=== PATIENT | male | born 1950 ===

== ENCOUNTER 2025-05-23 02:45 | Inpatient (IN) ==
[2025-05-23] MEDS ORDERED: IOPAMIDOL 100 ML BOTTLE IV ONE (02:46)
[2025-05-23] MEDS: ONDANSETRON 4 MG/2 ML VIAL IV ONE (03:32)
[2025-05-23] MEDS: KETOROLAC 30 MG/ML VIAL IV ONE (03:32)
[2025-05-23] MEDS: fentaNYL 100 MCG/2 ML VIAL IV PRN (03:33)
[2025-05-23] MEDS: 0.9 % SODIUM CHLORIDE 1,000 ML IV ONE (03:34)
[2025-05-23 03:39] LABS: Basophils # (Auto) 0.01 K/mcL (0.00-0.30); Basophils % (Auto) 0.1 % (0.0-2.0); Eosinophils # (Auto) 0.21 K/mcL (0.00-0.70); Eosinophils % (Auto) 1.4 % (0.0-7.0); Hematocrit 34.9 % (40.1-51.0); Hemoglobin 11.7 g/dL (13.7-17.5); Lymphocytes # (Auto) 0.91 K/mcL (1.50-4.80); Lymphocytes % (Auto) 6.1 % (15.5-49.0); Mean Corpuscular HGB Conc 33.5 g/dL (31.0-36.0); Monocytes # (Auto) 1.55 K/mcL (0.10-0.90); Monocytes % (Auto) 10.4 % (1.0-12.0); Neutrophils % (Auto) 81.8 % (38.0-78.0); Platelet Count 338 K/mcL (140-440); RBC 3.93 M/mcL (4.63-6.08); WBC 14.9 K/mcL (4.5-11.0)
[2025-05-23 05:08] LABS: ALT/SGPT 40 U/L (<40); AST/SGOT 26 U/L (<40); Albumin 3.3 gm/dL (3.2-5.2); Albumin/Globulin Ratio 1.0 (1.0-2.3); Alkaline Phosphatase 90 U/L (39-117); Anion Gap 16.0 (8.0-16.0); Bilirubin,Total 0.5 mg/dL (0.1-1.0); Blood Urea Nitrogen 27 mg/dL (8-23); Calcium 9.0 mg/dL (8.6-10.4); Carbon Dioxide 20 mmol/L (22-30); Chloride 99 mmol/L (96-108); Globulin 3.2 gm/dL (2.2-3.7); Glucose 125 mg/dL (70-105); Potassium 3.6 mmol/L (3.3-5.1); Sodium 135 mmol/L (133-145)
[2025-05-23] MEDS: PIPERACILLIN SODIUM/TAZOBACTAM 3.375 GM in DEXTROSE 5% IN WATER 50 ML IV ONE (05:26)
[2025-05-23] MEDS ORDERED: ONDANSETRON 4 MG/2 ML VIAL IV PRN (05:40)
[2025-05-23] MEDS ORDERED: ACETAMINOPHEN 325 MG TABLET PO PRN (05:40)
[2025-05-23] MEDS: PANTOPRAZOLE 40 MG VIAL IV ONE ×3 (06:04→07:14)
[2025-05-23] MEDS: PANTOPRAZOLE 80 MG in 0.9 % SODIUM CHLORIDE 100 ML IV SCH ×2 (06:10→17:20)
[2025-05-23] MEDS: LACTATED RINGERS 1,000 ML IV SCH (06:19)
[2025-05-23] MEDS: 0.9 % SODIUM CHLORIDE 100 ML IV ONE (07:14)
[2025-05-23] MEDS: HYDROmorphone 0.5 MG/0.5 ML SYRINGE IV PRN ×2 (07:33→12:00)
[2025-05-23] MEDS ORDERED: PANTOPRAZOLE 80 MG in 0.9 % SODIUM CHLORIDE 100 ML IV SCH (08:45)
[2025-05-23] MEDS: ACETAMINOPHEN 1,000 MG/100 ML BAG IV SCH (09:18)
[2025-05-23] MEDS: PIPERACILLIN SODIUM/TAZOBACTAM 3.375 GM in DEXTROSE 5% IN WATER 100 ML IV SCH (10:33)
[2025-05-24 13:40] LABS: Basophils # (Auto) 0.01 K/mcL (0.00-0.30); Basophils % (Auto) 0.1 % (0.0-2.0); Eosinophils # (Auto) 0.01 K/mcL (0.00-0.70); Eosinophils % (Auto) 0.1 % (0.0-7.0); Hematocrit 40.6 % (40.1-51.0); Hemoglobin 13.1 g/dL (13.7-17.5); Lymphocytes # (Auto) 0.59 K/mcL (1.50-4.80); Lymphocytes % (Auto) 3.9 % (15.5-49.0); Mean Corpuscular HGB Conc 32.3 g/dL (31.0-36.0); Monocytes # (Auto) 0.90 K/mcL (0.10-0.90); Monocytes % (Auto) 6.0 % (1.0-12.0); Neutrophils % (Auto) 88.4 % (38.0-78.0); Platelet Count 278 K/mcL (140-440); RBC 4.44 M/mcL (4.63-6.08); WBC 15.1 K/mcL (4.5-11.0)
[2025-05-24] MEDS: PANTOPRAZOLE 40 MG VIAL IV ONE (22:36)
[2025-05-25 03:14] LABS: Bacteria,Urine FEW /hpf (0); Bilirubin,Urine Negative (Negative); Color,Urine Yellow; Glucose,Urine (UA) Negative (Negative); Ketones,Urine Trace mg/dL (Negative); Leukocyte Esterase,Urine Negative /uL (Negative); PH,Urine 5.0 (5.0-9.0); Protein,Urine 30 mg/dL (Negative); Specific Gravity,Urine 1.010 (1.000-1.035); Urine Amorphous Crystals MOD /hpf; Urobilinogen,Urine Normal
[2025-05-25 07:08] LABS: Basophils # (Auto) 0.02 K/mcL (0.00-0.30); Basophils % (Auto) 0.1 % (0.0-2.0); Eosinophils # (Auto) 0.03 K/mcL (0.00-0.70); Eosinophils % (Auto) 0.1 % (0.0-7.0); Hematocrit 40.8 % (40.1-51.0); Hemoglobin 13.6 g/dL (13.7-17.5); Lymphocytes # (Auto) 0.78 K/mcL (1.50-4.80); Lymphocytes % (Auto) 3.9 % (15.5-49.0); Mean Corpuscular HGB Conc 33.3 g/dL (31.0-36.0); Monocytes # (Auto) 1.10 K/mcL (0.10-0.90); Monocytes % (Auto) 5.5 % (1.0-12.0); Neutrophils % (Auto) 88.9 % (38.0-78.0); Platelet Count 299 K/mcL (140-440); RBC 4.59 M/mcL (4.63-6.08); WBC 20.1 K/mcL (4.5-11.0)
[2025-05-25 07:37] LABS: ALT/SGPT 20 U/L (<40); AST/SGOT 19 U/L (<40); Albumin 2.4 gm/dL (3.2-5.2); Albumin/Globulin Ratio 0.8 (1.0-2.3); Alkaline Phosphatase 66 U/L (39-117); Anion Gap 18.0 (8.0-16.0); Bilirubin,Direct 0.6 mg/dL (<0.3); Bilirubin,Total 0.9 mg/dL (0.1-1.0); Blood Urea Nitrogen 57 mg/dL (8-23); Calcium 7.9 mg/dL (8.6-10.4); Carbon Dioxide 18 mmol/L (22-30); Chloride 96 mmol/L (96-108); Globulin 3.1 gm/dL (2.2-3.7); Glucose 128 mg/dL (70-105); Phosphorous 6.0 mg/dL (2.5-4.5); Potassium 4.6 mmol/L (3.3-5.1); Sodium 132 mmol/L (133-145); Triglycerides 120 mg/dL (<150); Uric Acid 7.9 mg/dL (2.5-8.0)
[2025-05-25] MEDS ORDERED: PROPOFOL 200 MG/20 ML VIAL IV ONE (07:57)
[2025-05-25] MEDS ORDERED: GLYCOPYRROLATE 0.2 MG/ML VIAL IV ONE (08:13)
[2025-05-25] MEDS ORDERED: LIDOCAINE 2% PF 5 ML VIAL ONE (08:13)
[2025-05-25] MEDS ORDERED: TRANEXAMIC ACID 1,000 MG/10 ML VIAL ONE (08:13)
[2025-05-25] MEDS ORDERED: ROCURONIUM 10 MG/ML ML IV ONE (08:13)
[2025-05-25] MEDS ORDERED: ONDANSETRON 4 MG/2 ML VIAL ONE (08:13)
[2025-05-25] MEDS ORDERED: DEXAMETHASONE 10 MG/ML VIAL ONE (08:13)
[2025-05-25] MEDS ORDERED: METOCLOPRAMIDE 10 MG/2 ML VIAL ONE (08:15)
[2025-05-25] MEDS ORDERED: ROPIVACAINE HCL/PF 30 ML VIAL IJ ONE ×2 (08:15→08:40)
[2025-05-25] MEDS ORDERED: FAMOTIDINE/PF 20 MG/2 ML VIAL IV ONE (08:15)
[2025-05-25] MEDS ORDERED: IPRATROPIUM/ALBUTEROL 3 ML AMPUL.NEB NEB PRN ×2 (09:22→12:04)
[2025-05-25] MEDS ORDERED: HYDROmorphone 0.5 MG/0.5 ML SYRINGE IV PRN ×2 (09:35→12:04)
[2025-05-25] MEDS ORDERED: fentaNYL 100 MCG/2 ML VIAL IV PRN ×2 (09:35→12:04)
[2025-05-25] MEDS ORDERED: SUGAMMADEX SODIUM 200 MG/2 ML VIAL IV ONE (11:39)
[2025-05-25] MEDS: ALBUMIN HUMAN 25 GM/100 ML BAG IV ONE (13:37)
[2025-05-25] MEDS: LACTATED RINGERS 1,000 ML IV SCH ×2 (13:45→19:07)
[2025-05-25] MEDS: ALBUMIN HUMAN 25 GM/100 ML BAG IV SCH (13:48)
[2025-05-25] MEDS: PIPERACILLIN SODIUM/TAZOBACTAM 3.375 GM in DEXTROSE 5% IN WATER 100 ML IV SCH (16:11)
[2025-05-25] MEDS: 0.9 % SODIUM CHLORIDE 1,000 ML IV SCH (19:07)
[2025-05-26 07:21] LABS: ALT/SGPT 20 U/L (<40); AST/SGOT 32 U/L (<40); Albumin 3.3 gm/dL (3.2-5.2); Albumin/Globulin Ratio 1.7 (1.0-2.3); Alkaline Phosphatase 46 U/L (39-117); Anion Gap 17.0 (8.0-16.0); Bilirubin,Direct 0.6 mg/dL (<0.3); Bilirubin,Total 0.9 mg/dL (0.1-1.0); Blood Urea Nitrogen 66 mg/dL (8-23); Calcium 7.4 mg/dL (8.6-10.4); Carbon Dioxide 17 mmol/L (22-30); Chloride 101 mmol/L (96-108); Globulin 2.0 gm/dL (2.2-3.7); Glucose 101 mg/dL (70-105); Phosphorous 4.6 mg/dL (2.5-4.5); Potassium 3.7 mmol/L (3.3-5.1); Sodium 135 mmol/L (133-145); Triglycerides 103 mg/dL (<150); Uric Acid 8.8 mg/dL (2.5-8.0)
[2025-05-26 07:27] LABS: Basophils # (Auto) 0 K/mcL (0.00-0.30); Basophils % (Auto) 0 % (0.0-2.0); Eosinophils # (Auto) 0 K/mcL (0.00-0.70); Eosinophils % (Auto) 0 % (0.0-7.0); Hematocrit 25.9 % (40.1-51.0); Hemoglobin 8.7 g/dL (13.7-17.5); Lymphocytes # (Auto) 0.45 K/mcL (1.50-4.80); Lymphocytes % (Auto) 3.4 % (15.5-49.0); Mean Corpuscular HGB Conc 33.6 g/dL (31.0-36.0); Monocytes # (Auto) 0.59 K/mcL (0.10-0.90); Monocytes % (Auto) 4.5 % (1.0-12.0); Neutrophils % (Auto) 90.7 % (38.0-78.0); Platelet Count 192 K/mcL (140-440); RBC 2.95 M/mcL (4.63-6.08); WBC 13.2 K/mcL (4.5-11.0)
[2025-05-26] MEDS: 0.9 % SODIUM CHLORIDE 1,000 ML IV SCH (10:14)
[2025-05-26] MEDS: diphenhydrAMINE 50 MG/ML VIAL IV PRN (13:37)
[2025-05-26] MEDS: HALOPERIDOL LACTATE 5 MG/ML VIAL IV ONE (18:01)
[2025-05-26] MEDS: DEXMEDETOMIDINE 400 MCG in PREMIX 1 BAG IV SCH (20:40)
[2025-05-26] MEDS: 0.9 % SODIUM CHLORIDE 250 ML IV SCH (20:42)
[2025-05-26] MEDS: DEXMEDETOMIDINE 100 ML IV ONE (21:07)
[2025-05-26] MEDS: 0.9 % SODIUM CHLORIDE 1,000 ML IV ONE (21:23)
[2025-05-26 21:40] LABS: VBG HCO3 17.7 mmol/L (24.0-28.0); VBG PCO2 31.3 mmHg (41.0-51.0); VBG PH 7.37 U (7.32-7.42); VBG PO2 41.3 mmHg (25.0-40.0)
[2025-05-26 23:22] LABS: Bacteria,Urine Mod /hpf (0); Bilirubin,Urine Negative (Negative); Color,Urine Yellow; Glucose,Urine (UA) Negative (Negative); Ketones,Urine Negative (Negative); Leukocyte Esterase,Urine Negative /uL (Negative); Mucus,Urine Few /hpf; PH,Urine 5.5 (5.0-9.0); Protein,Urine 100 mg/dL (Negative); Specific Gravity,Urine 1.015 (1.000-1.035); Urobilinogen,Urine Normal
[2025-05-27] MEDS ORDERED: HALOPERIDOL LACTATE 5 MG/ML VIAL IM PRN
[2025-05-27] MEDS ORDERED: HALOPERIDOL LACTATE 5 MG/ML VIAL IV PRN
[2025-05-27] MEDS: DEXMEDETOMIDINE 100 ML IV ONE ×3 (05:08→19:17)
[2025-05-27 06:31] LABS: ALT/SGPT 19 U/L (<40); AST/SGOT 26 U/L (<40); Albumin 3.2 gm/dL (3.2-5.2); Albumin/Globulin Ratio 2.0 (1.0-2.3); Alkaline Phosphatase 50 U/L (39-117); Anion Gap 13.0 (8.0-16.0); Bilirubin,Direct 0.4 mg/dL (<0.3); Bilirubin,Total 0.7 mg/dL (0.1-1.0); Blood Urea Nitrogen 61 mg/dL (8-23); Calcium 7.6 mg/dL (8.6-10.4); Carbon Dioxide 16 mmol/L (22-30); Chloride 109 mmol/L (96-108); Globulin 1.6 gm/dL (2.2-3.7); Glucose 96 mg/dL (70-105); Phosphorous 4.7 mg/dL (2.5-4.5); Potassium 3.7 mmol/L (3.3-5.1); Sodium 138 mmol/L (133-145); Triglycerides 112 mg/dL (<150); Uric Acid 7.5 mg/dL (2.5-8.0)
[2025-05-27 06:56] LABS: Basophils # (Auto) 0 K/mcL (0.00-0.30); Basophils % (Auto) 0 % (0.0-2.0); Eosinophils # (Auto) 0.04 K/mcL (0.00-0.70); Eosinophils % (Auto) 0.3 % (0.0-7.0); Hematocrit 23.3 % (40.1-51.0); Hemoglobin 7.9 g/dL (13.7-17.5); Lymphocytes # (Auto) 0.38 K/mcL (1.50-4.80); Lymphocytes % (Auto) 2.8 % (15.5-49.0); Mean Corpuscular HGB Conc 33.9 g/dL (31.0-36.0); Monocytes # (Auto) 0.43 K/mcL (0.10-0.90); Monocytes % (Auto) 3.2 % (1.0-12.0); Neutrophils % (Auto) 91.5 % (38.0-78.0); Platelet Count 143 K/mcL (140-440); RBC 2.65 M/mcL (4.63-6.08); WBC 13.6 K/mcL (4.5-11.0)
[2025-05-27] MEDS: LACTATED RINGERS 1,000 ML IV SCH (07:47)
[2025-05-27] MEDS: 0.9 % SODIUM CHLORIDE 250 ML IV SCH (10:10)
[2025-05-27] MEDS ORDERED: IOPAMIDOL 100 ML BOTTLE IV ONE (16:16)
[2025-05-27] MEDS: PANTOPRAZOLE 40 MG VIAL IV ONE (18:56)
[2025-05-28] MEDS: DEXMEDETOMIDINE 100 ML IV ONE ×2 (02:50→12:26)
[2025-05-28] MEDS: PANTOPRAZOLE 40 MG VIAL IV ONE (03:27)
[2025-05-28 06:17] LABS: ALT/SGPT 20 U/L (<40); AST/SGOT 21 U/L (<40); Albumin 2.7 gm/dL (3.2-5.2); Albumin/Globulin Ratio 1.3 (1.0-2.3); Alkaline Phosphatase 72 U/L (39-117); Anion Gap 13.0 (8.0-16.0); Bilirubin,Direct 0.5 mg/dL (<0.3); Bilirubin,Total 0.8 mg/dL (0.1-1.0); Blood Urea Nitrogen 64 mg/dL (8-23); Calcium 8.0 mg/dL (8.6-10.4); Carbon Dioxide 15 mmol/L (22-30); Chloride 111 mmol/L (96-108); Globulin 2.1 gm/dL (2.2-3.7); Glucose 109 mg/dL (70-105); Phosphorous 4.7 mg/dL (2.5-4.5); Potassium 3.9 mmol/L (3.3-5.1); Sodium 139 mmol/L (133-145); Triglycerides 112 mg/dL (<150); Uric Acid 6.9 mg/dL (2.5-8.0)
[2025-05-28 06:27] LABS: Basophils # (Auto) 0 K/mcL (0.00-0.30); Basophils % (Auto) 0 % (0.0-2.0); Eosinophils # (Auto) 0.21 K/mcL (0.00-0.70); Eosinophils % (Auto) 0.9 % (0.0-7.0); Hematocrit 27.6 % (40.1-51.0); Hemoglobin 9.2 g/dL (13.7-17.5); Lymphocytes # (Auto) 0.51 K/mcL (1.50-4.80); Lymphocytes % (Auto) 2.3 % (15.5-49.0); Mean Corpuscular HGB Conc 33.3 g/dL (31.0-36.0); Monocytes # (Auto) 0.62 K/mcL (0.10-0.90); Monocytes % (Auto) 2.8 % (1.0-12.0); Neutrophils % (Auto) 90.8 % (38.0-78.0); Platelet Count 165 K/mcL (140-440); RBC 3.10 M/mcL (4.63-6.08); WBC 22.5 K/mcL (4.5-11.0)
[2025-05-28] MEDS: ALBUMIN HUMAN 25 GM/100 ML BAG IV SCH (13:20)
[2025-05-28] MEDS: PANTOPRAZOLE 40 MG VIAL IV SCH (17:02)
[2025-05-29] MEDS: DEXMEDETOMIDINE 100 ML IV ONE ×3 (02:38→22:37)
[2025-05-29 06:18] LABS: Basophils # (Auto) 0 K/mcL (0.00-0.30); Basophils % (Auto) 0 % (0.0-2.0); Eosinophils # (Auto) 0.27 K/mcL (0.00-0.70); Eosinophils % (Auto) 1.2 % (0.0-7.0); Hematocrit 23.0 % (40.1-51.0); Hemoglobin 8.0 g/dL (13.7-17.5); Lymphocytes # (Auto) 0.48 K/mcL (1.50-4.80); Lymphocytes % (Auto) 2.2 % (15.5-49.0); Mean Corpuscular HGB Conc 34.8 g/dL (31.0-36.0); Monocytes # (Auto) 0.47 K/mcL (0.10-0.90); Monocytes % (Auto) 2.1 % (1.0-12.0); Neutrophils % (Auto) 92.0 % (38.0-78.0); Platelet Count 170 K/mcL (140-440); RBC 2.66 M/mcL (4.63-6.08); WBC 22.0 K/mcL (4.5-11.0)
[2025-05-29 06:49] LABS: ALT/SGPT 16 U/L (<40); AST/SGOT 18 U/L (<40); Albumin 3.4 gm/dL (3.2-5.2); Albumin/Globulin Ratio 1.9 (1.0-2.3); Alkaline Phosphatase 117 U/L (39-117); Anion Gap 12.0 (8.0-16.0); Bilirubin,Direct 0.8 mg/dL (<0.3); Bilirubin,Total 1.3 mg/dL (0.1-1.0); Blood Urea Nitrogen 58 mg/dL (8-23); Calcium 8.5 mg/dL (8.6-10.4); Carbon Dioxide 19 mmol/L (22-30); Chloride 112 mmol/L (96-108); Globulin 1.8 gm/dL (2.2-3.7); Glucose 102 mg/dL (70-105); Phosphorous 3.1 mg/dL (2.5-4.5); Potassium 3.5 mmol/L (3.3-5.1); Sodium 143 mmol/L (133-145); Triglycerides 92 mg/dL (<150); Uric Acid 5.2 mg/dL (2.5-8.0)
[2025-05-29] MEDS: 0.9 % SODIUM CHLORIDE 250 ML IV SCH (15:19)
[2025-05-30] MEDS: DEXMEDETOMIDINE 100 ML IV ONE ×2 (03:47→16:52)
[2025-05-30 06:12] LABS: ALT/SGPT 18 U/L (<40); AST/SGOT 27 U/L (<40); Albumin 2.8 gm/dL (3.2-5.2); Albumin/Globulin Ratio 1.5 (1.0-2.3); Alkaline Phosphatase 102 U/L (39-117); Anion Gap 13.0 (8.0-16.0); Bilirubin,Direct 1.1 mg/dL (<0.3); Bilirubin,Total 2.0 mg/dL (0.1-1.0); Blood Urea Nitrogen 48 mg/dL (8-23); Calcium 7.9 mg/dL (8.6-10.4); Carbon Dioxide 19 mmol/L (22-30); Chloride 113 mmol/L (96-108); Globulin 1.9 gm/dL (2.2-3.7); Glucose 131 mg/dL (70-105); Phosphorous 3.2 mg/dL (2.5-4.5); Potassium 3.8 mmol/L (3.3-5.1); Sodium 145 mmol/L (133-145); Triglycerides 107 mg/dL (<150); Uric Acid 4.4 mg/dL (2.5-8.0)
[2025-05-30] MEDS: 0.9 % SODIUM CHLORIDE 250 ML IV SCH ×3 (06:30→16:00)
[2025-05-30 06:53] LABS: POC Blood Urea Nitrogen 42.0 (6-20); POC CO2 16.0 (22-30); POC Calcium, Ionized 1.03 (1.16-1.32); POC Glucose, Random 117.0 (70-105)
[2025-05-30] MEDS: TRANEXAMIC ACID 1,000 MG/10 ML VIAL IV ONE (06:54)
[2025-05-30 06:59] LABS: Basophils # (Auto) 0 K/mcL (0.00-0.30); Basophils % (Auto) 0 % (0.0-2.0); Eosinophils # (Auto) 0.09 K/mcL (0.00-0.70); Eosinophils % (Auto) 0.4 % (0.0-7.0); Hematocrit 27.4 % (40.1-51.0); Hemoglobin 9.4 g/dL (13.7-17.5); Lymphocytes # (Auto) 0.67 K/mcL (1.50-4.80); Lymphocytes % (Auto) 3.3 % (15.5-49.0); Mean Corpuscular HGB Conc 34.3 g/dL (31.0-36.0); Monocytes # (Auto) 0.47 K/mcL (0.10-0.90); Monocytes % (Auto) 2.3 % (1.0-12.0); Neutrophils % (Auto) 90.5 % (38.0-78.0); Platelet Count 171 K/mcL (140-440); RBC 3.17 M/mcL (4.63-6.08); WBC 20.2 K/mcL (4.5-11.0)
[2025-05-30] MEDS ORDERED: PANTOPRAZOLE 40 MG VIAL IV SCH ×2 (07:00→07:30)
[2025-05-30] MEDS ORDERED: PANTOPRAZOLE 80 MG in 0.9 % SODIUM CHLORIDE 100 ML IV SCH (07:00)
[2025-05-30] MEDS ORDERED: GLYCOPYRROLATE 0.2 MG/ML VIAL IV ONE (07:06)
[2025-05-30] MEDS ORDERED: FAMOTIDINE/PF 20 MG/2 ML VIAL IV ONE (07:06)
[2025-05-30] MEDS ORDERED: DEXAMETHASONE 10 MG/ML VIAL ONE (07:06)
[2025-05-30] MEDS ORDERED: LIDOCAINE 2% PF 5 ML VIAL ONE (07:06)
[2025-05-30] MEDS ORDERED: ONDANSETRON 4 MG/2 ML VIAL ONE (07:06)
[2025-05-30] MEDS ORDERED: ROCURONIUM 10 MG/ML ML IV ONE (07:06)
[2025-05-30] MEDS ORDERED: PROPOFOL 200 MG/20 ML VIAL IV ONE (07:10)
[2025-05-30] MEDS ORDERED: fentaNYL 100 MCG/2 ML VIAL ONE ×2 (07:11→10:35)
[2025-05-30] MEDS ORDERED: SUCCINYLCHOLINE 200 MG/10 ML VIAL IV ONE (07:41)
[2025-05-30] MEDS: PANTOPRAZOLE 40 MG VIAL IV ONE (08:42)
[2025-05-30 09:39] LABS: INR 2.1 (0.9-1.1); Prothrombin Time 25.0 sec (11.9-14.5)
[2025-05-30] MEDS ORDERED: METHOCARBAMOL 1,000 MG/10 ML VIAL IV PRN (10:10)
[2025-05-30] MEDS ORDERED: IPRATROPIUM/ALBUTEROL 3 ML AMPUL.NEB NEB PRN (10:10)
[2025-05-30] MEDS ORDERED: MEPERIDINE 25 MG/ML VIAL IV PRN (10:10)
[2025-05-30] MEDS ORDERED: LACTATED RINGERS 250 ML IV PRN (10:10)
[2025-05-30] MEDS ORDERED: NALOXONE HCL 0.4 MG/ML VIAL IV PRN (10:10)
[2025-05-30] MEDS ORDERED: fentaNYL 100 MCG/2 ML VIAL IV PRN (10:10)
[2025-05-30] MEDS ORDERED: diphenhydrAMINE 50 MG/ML VIAL IV PRN (10:10)
[2025-05-30] MEDS ORDERED: ONDANSETRON 4 MG/2 ML VIAL IV PRN (10:10)
[2025-05-30] MEDS ORDERED: SUGAMMADEX SODIUM 200 MG/2 ML VIAL IV ONE (10:12)
[2025-05-30] MEDS: LACTATED RINGERS 1,000 ML IV SCH (12:13)
[2025-05-30 12:16] LABS: Basophils # (Auto) 0.01 K/mcL (0.00-0.30); Basophils % (Auto) 0 % (0.0-2.0); Eosinophils # (Auto) 0.06 K/mcL (0.00-0.70); Eosinophils % (Auto) 0.2 % (0.0-7.0); Hematocrit 41.0 % (40.1-51.0); Hemoglobin 13.6 g/dL (13.7-17.5); Lymphocytes # (Auto) 0.89 K/mcL (1.50-4.80); Lymphocytes % (Auto) 3.1 % (15.5-49.0); Mean Corpuscular HGB Conc 33.2 g/dL (31.0-36.0); Monocytes # (Auto) 0.61 K/mcL (0.10-0.90); Monocytes % (Auto) 2.1 % (1.0-12.0); Neutrophils % (Auto) 91.0 % (38.0-78.0); Platelet Count 174 K/mcL (140-440); RBC 4.79 M/mcL (4.63-6.08); WBC 29.1 K/mcL (4.5-11.0)
[2025-05-30] MEDS: PHYTONADIONE 10 MG/ML AMPUL SQ SCH (12:16)
[2025-05-30 16:19] LABS: Basophils # (Auto) 0.01 K/mcL (0.00-0.30); Basophils % (Auto) 0 % (0.0-2.0); Eosinophils # (Auto) 0.02 K/mcL (0.00-0.70); Eosinophils % (Auto) 0.1 % (0.0-7.0); Hematocrit 43.0 % (40.1-51.0); Hemoglobin 13.5 g/dL (13.7-17.5); Lymphocytes # (Auto) 0.99 K/mcL (1.50-4.80); Lymphocytes % (Auto) 2.9 % (15.5-49.0); Mean Corpuscular HGB Conc 31.4 g/dL (31.0-36.0); Monocytes # (Auto) 0.58 K/mcL (0.10-0.90); Monocytes % (Auto) 1.7 % (1.0-12.0); Neutrophils % (Auto) 91.8 % (38.0-78.0); Platelet Count 185 K/mcL (140-440); RBC 4.71 M/mcL (4.63-6.08); WBC 34.2 K/mcL (4.5-11.0)
[2025-05-30] MEDS: PANTOPRAZOLE 40 MG VIAL IV SCH (16:24)
[2025-05-30 18:45] LABS: INR 1.6 (0.9-1.1); Prothrombin Time 20.0 sec (11.9-14.5)
[2025-05-31] MEDS: DEXMEDETOMIDINE 100 ML IV ONE ×5 (01:31→20:19)
[2025-05-31 06:29] LABS: Basophils # (Auto) 0.01 K/mcL (0.00-0.30); Basophils % (Auto) 0.1 % (0.0-2.0); Eosinophils # (Auto) 0.01 K/mcL (0.00-0.70); Eosinophils % (Auto) 0.1 % (0.0-7.0); Hematocrit 28.1 % (40.1-51.0); Hemoglobin 9.4 g/dL (13.7-17.5); Lymphocytes # (Auto) 0.54 K/mcL (1.50-4.80); Lymphocytes % (Auto) 2.8 % (15.5-49.0); Mean Corpuscular HGB Conc 33.5 g/dL (31.0-36.0); Monocytes # (Auto) 0.59 K/mcL (0.10-0.90); Monocytes % (Auto) 3.1 % (1.0-12.0); Neutrophils % (Auto) 91.9 % (38.0-78.0); Platelet Count 137 K/mcL (140-440); RBC 3.27 M/mcL (4.63-6.08); WBC 19.1 K/mcL (4.5-11.0)
[2025-05-31 06:47] LABS: ALT/SGPT 32 U/L (<40); AST/SGOT 60 U/L (<40); Albumin 2.6 gm/dL (3.2-5.2); Albumin/Globulin Ratio 1.2 (1.0-2.3); Alkaline Phosphatase 162 U/L (39-117); Anion Gap 11.0 (8.0-16.0); Bilirubin,Direct 2.1 mg/dL (<0.3); Bilirubin,Total 3.1 mg/dL (0.1-1.0); Blood Urea Nitrogen 45 mg/dL (8-23); Calcium 8.0 mg/dL (8.6-10.4); Carbon Dioxide 21 mmol/L (22-30); Chloride 112 mmol/L (96-108); Globulin 2.2 gm/dL (2.2-3.7); Glucose 139 mg/dL (70-105); Phosphorous 3.4 mg/dL (2.5-4.5); Potassium 4.4 mmol/L (3.3-5.1); Sodium 144 mmol/L (133-145); Triglycerides 114 mg/dL (<150); Uric Acid 4.4 mg/dL (2.5-8.0)
[2025-05-31] MEDS: HEPARIN 10 UNITS/ML 5ML FLUSH IV SCH ×2 (08:18→08:19)
[2025-05-31] MEDS: 0.9 % SODIUM CHLORIDE 10 ML SYRINGE IV SCH (08:51)
[2025-05-31 13:17] LABS: INR 1.2 (0.9-1.1); Prothrombin Time 16.1 sec (11.9-14.5)
[2025-05-31] MEDS ORDERED: DEXTROSE 50% 50 ML VIAL IV PRN (14:32)
[2025-05-31] MEDS ORDERED: DEXTROSE 31 GM ORAL.SUSP PO PRN (14:32)
[2025-05-31] MEDS ORDERED: HEPARIN 10 UNITS/ML 5ML FLUSH IV ONE (14:56)
[2025-05-31] MEDS ORDERED: SODIUM CHLORIDE IRRIG SOLUTION 500 ML BOTTLE IRR ONE (14:56)
[2025-05-31] MEDS: POTASSIUM PHOSPHATE IV SCH (15:25)
[2025-05-31] MEDS: TPN PER PHARMACY IV SCH (15:25)
[2025-05-31] MEDS: MAGNESIUM SULFATE IV SCH (15:25)
[2025-05-31] MEDS: CALCIUM GLUCONATE IV SCH (15:25)
[2025-05-31] MEDS: [UNRECOGNIZED DRUG - OTHER] IV SCH (15:25)
[2025-05-31] MEDS: INSULIN LISPRO 1 UNIT/0.01 ML UNIT SQ SCH (15:28)
[2025-06-01] MEDS: DEXMEDETOMIDINE 100 ML IV ONE (04:04)
[2025-06-01 07:46] LABS: Basophils # (Auto) 0 K/mcL (0.00-0.30); Basophils % (Auto) 0 % (0.0-2.0); Eosinophils # (Auto) 0.09 K/mcL (0.00-0.70); Eosinophils % (Auto) 0.4 % (0.0-7.0); Hematocrit 29.5 % (40.1-51.0); Hemoglobin 10.0 g/dL (13.7-17.5); Lymphocytes # (Auto) 0.60 K/mcL (1.50-4.80); Lymphocytes % (Auto) 2.7 % (15.5-49.0); Mean Corpuscular HGB Conc 33.9 g/dL (31.0-36.0); Monocytes # (Auto) 0.69 K/mcL (0.10-0.90); Monocytes % (Auto) 3.1 % (1.0-12.0); Neutrophils % (Auto) 92.5 % (38.0-78.0); Platelet Count 159 K/mcL (140-440); RBC 3.42 M/mcL (4.63-6.08); WBC 22.3 K/mcL (4.5-11.0)
[2025-06-01 07:57] LABS: ALT/SGPT 43 U/L (<40); AST/SGOT 54 U/L (<40); Albumin 2.5 gm/dL (3.2-5.2); Albumin/Globulin Ratio 1.0 (1.0-2.3); Alkaline Phosphatase 185 U/L (39-117); Anion Gap 9.0 (8.0-16.0); Bilirubin,Direct 1.1 mg/dL (<0.3); Bilirubin,Total 1.7 mg/dL (0.1-1.0); Blood Urea Nitrogen 39 mg/dL (8-23); Calcium 8.2 mg/dL (8.6-10.4); Carbon Dioxide 22 mmol/L (22-30); Chloride 112 mmol/L (96-108); Globulin 2.4 gm/dL (2.2-3.7); Glucose 129 mg/dL (70-105); Phosphorous 2.1 mg/dL (2.5-4.5); Potassium 4.0 mmol/L (3.3-5.1); Sodium 143 mmol/L (133-145); Triglycerides 101 mg/dL (<150); Uric Acid 3.0 mg/dL (2.5-8.0)
[2025-06-01 13:34] LABS: Iron 15.0 ug/dL (61-157); TIBC Calculation 95.0 ug/dl (228-428); Transferrin % Saturation 16.0 % (20-50)
[2025-06-01] MEDS: [UNRECOGNIZED DRUG - OTHER] IV SCH (15:04)
[2025-06-01] MEDS: POTASSIUM PHOSPHATE IV SCH (15:04)
[2025-06-01] MEDS: CALCIUM GLUCONATE IV SCH (15:04)
[2025-06-01] MEDS: MAGNESIUM SULFATE IV SCH (15:04)
[2025-06-01] MEDS: FLUCONAZOLE 200 MG/100 ML BAG IV SCH ×2 (17:14→17:24)
[2025-06-01] MEDS: FAT EMULSION 20% 250 ML IV SCH (18:09)
[2025-06-02 06:39] LABS: Hematocrit 29.6 % (40.1-51.0); Hemoglobin 9.8 g/dL (13.7-17.5); Mean Corpuscular HGB Conc 33.1 g/dL (31.0-36.0); Platelet Count 160 K/mcL (140-440); RBC 3.38 M/mcL (4.63-6.08); WBC 20.4 K/mcL (4.5-11.0)
[2025-06-02 07:00] LABS: ALT/SGPT 32 U/L (<40); AST/SGOT 32 U/L (<40); Albumin 2.3 gm/dL (3.2-5.2); Albumin/Globulin Ratio 0.9 (1.0-2.3); Alkaline Phosphatase 138 U/L (39-117); Anion Gap 11.0 (8.0-16.0); Bilirubin,Direct 0.7 mg/dL (<0.3); Bilirubin,Total 1.1 mg/dL (0.1-1.0); Blood Urea Nitrogen 25 mg/dL (8-23); Calcium 8.0 mg/dL (8.6-10.4); Carbon Dioxide 19 mmol/L (22-30); Chloride 110 mmol/L (96-108); Globulin 2.5 gm/dL (2.2-3.7); Glucose 164 mg/dL (70-105); Phosphorous 2.2 mg/dL (2.5-4.5); Potassium 3.6 mmol/L (3.3-5.1); Sodium 140 mmol/L (133-145); Triglycerides 124 mg/dL (<150); Uric Acid 1.7 mg/dL (2.5-8.0)
[2025-06-02] MEDS: 0.9 % SODIUM CHLORIDE 10 ML SYRINGE IV PRN (07:14)
[2025-06-02 08:07] LABS: RBC Morphology NORMAL (Normal)
[2025-06-02] MEDS: LABETALOL HCL 20 MG/4 ML VIAL IV PRN (08:35)
[2025-06-02] MEDS: LISINOPRIL 20 MG TABLET PO SCH (09:22)
[2025-06-02] MEDS: FUROSEMIDE 40 MG/4 ML VIAL IV SCH (09:22)
[2025-06-02 13:13] LABS: Ferritin 2702.0 ng/mL (30.0-400.0)
[2025-06-02] MEDS: CALCIUM GLUCONATE IV SCH (14:34)
[2025-06-02] MEDS: MAGNESIUM SULFATE IV SCH (14:34)
[2025-06-02] MEDS: [UNRECOGNIZED DRUG - OTHER] IV SCH (14:34)
[2025-06-02] MEDS: POTASSIUM PHOSPHATE IV SCH (14:34)
[2025-06-02] MEDS ORDERED: ONDANSETRON 4 MG/2 ML VIAL IV PRN (16:39)
[2025-06-02] MEDS ORDERED: LACTULOSE 20 GM/30 ML ORAL.SOL PO PRN (16:39)
[2025-06-02] MEDS: DOCUSATE SODIUM 100 MG CAPSULE PO SCH (20:25)
[2025-06-02] MEDS: 0.9 % SODIUM CHLORIDE 10 ML SYRINGE IV SCH (20:26)
[2025-06-03] MEDS: DEXMEDETOMIDINE 100 ML IV ONE (04:02)
[2025-06-03 06:34] LABS: INR 1.3 (0.9-1.1); Prothrombin Time 17.5 sec (11.9-14.5)
[2025-06-03 06:43] LABS: Basophils # (Auto) 0.01 K/mcL (0.00-0.30); Basophils % (Auto) 0.1 % (0.0-2.0); Eosinophils # (Auto) 0.36 K/mcL (0.00-0.70); Eosinophils % (Auto) 2.6 % (0.0-7.0); Hematocrit 26.5 % (40.1-51.0); Hemoglobin 8.9 g/dL (13.7-17.5); Lymphocytes # (Auto) 0.43 K/mcL (1.50-4.80); Lymphocytes % (Auto) 3.1 % (15.5-49.0); Mean Corpuscular HGB Conc 33.6 g/dL (31.0-36.0); Monocytes # (Auto) 0.71 K/mcL (0.10-0.90); Monocytes % (Auto) 5.1 % (1.0-12.0); Neutrophils % (Auto) 88.2 % (38.0-78.0); Platelet Count 145 K/mcL (140-440); RBC 3.06 M/mcL (4.63-6.08); WBC 13.9 K/mcL (4.5-11.0)
[2025-06-03 07:26] LABS: ALT/SGPT 26 U/L (<40); AST/SGOT 28 U/L (<40); Albumin 2.1 gm/dL (3.2-5.2); Albumin/Globulin Ratio 0.8 (1.0-2.3); Alkaline Phosphatase 113 U/L (39-117); Anion Gap 10.0 (8.0-16.0); Bilirubin,Direct 0.8 mg/dL (<0.3); Bilirubin,Total 1.2 mg/dL (0.1-1.0); Blood Urea Nitrogen 22 mg/dL (8-23); Calcium 7.6 mg/dL (8.6-10.4); Carbon Dioxide 24 mmol/L (22-30); Chloride 107 mmol/L (96-108); Globulin 2.7 gm/dL (2.2-3.7); Glucose 123 mg/dL (70-105); Phosphorous 2.9 mg/dL (2.5-4.5); Potassium 3.6 mmol/L (3.3-5.1); Sodium 141 mmol/L (133-145); Triglycerides 88 mg/dL (<150); Uric Acid 1.4 mg/dL (2.5-8.0)
[2025-06-03] MEDS: FUROSEMIDE 40 MG/4 ML VIAL IV ONE (08:15)
[2025-06-03] MEDS: hydrALAZINE 20 MG/ML VIAL IV PRN (08:15)
[2025-06-03] MEDS: ALBUMIN HUMAN 12.5 GM/50 ML VIAL IV ONE (08:16)
[2025-06-03] MEDS ORDERED: IPRATROPIUM/ALBUTEROL 3 ML AMPUL.NEB NEB PRN (10:30)
[2025-06-03] MEDS: [UNRECOGNIZED DRUG - OTHER] IV SCH (14:39)
[2025-06-03] MEDS: CALCIUM GLUCONATE IV SCH (14:39)
[2025-06-03] MEDS: POTASSIUM PHOSPHATE IV SCH (14:39)
[2025-06-03] MEDS: MAGNESIUM SULFATE IV SCH (14:39)
[2025-06-03] MEDS: FUROSEMIDE 100 MG/10 ML VIAL IV ONE (16:31)
[2025-06-03] MEDS: OCTREOTIDE ACETATE 100 MCG/ML VIAL IV SCH (16:31)
[2025-06-03] MEDS: METOCLOPRAMIDE 10 MG/2 ML VIAL IV SCH (18:02)
[2025-06-04 06:17] LABS: Basophils # (Auto) 0.02 K/mcL (0.00-0.30); Basophils % (Auto) 0.1 % (0.0-2.0); Eosinophils # (Auto) 0.38 K/mcL (0.00-0.70); Eosinophils % (Auto) 2.8 % (0.0-7.0); Hematocrit 27.1 % (40.1-51.0); Hemoglobin 8.7 g/dL (13.7-17.5); Lymphocytes # (Auto) 0.58 K/mcL (1.50-4.80); Lymphocytes % (Auto) 4.2 % (15.5-49.0); Mean Corpuscular HGB Conc 32.1 g/dL (31.0-36.0); Monocytes # (Auto) 1.06 K/mcL (0.10-0.90); Monocytes % (Auto) 7.7 % (1.0-12.0); Neutrophils % (Auto) 84.3 % (38.0-78.0); Platelet Count 172 K/mcL (140-440); RBC 3.03 M/mcL (4.63-6.08); WBC 13.7 K/mcL (4.5-11.0)
[2025-06-04 06:41] LABS: ALT/SGPT 27 U/L (<40); AST/SGOT 27 U/L (<40); Albumin 2.4 gm/dL (3.2-5.2); Albumin/Globulin Ratio 0.9 (1.0-2.3); Alkaline Phosphatase 120 U/L (39-117); Anion Gap 12.0 (8.0-16.0); Bilirubin,Direct 0.7 mg/dL (<0.3); Bilirubin,Total 1.0 mg/dL (0.1-1.0); Blood Urea Nitrogen 26 mg/dL (8-23); Calcium 8.0 mg/dL (8.6-10.4); Carbon Dioxide 23 mmol/L (22-30); Chloride 102 mmol/L (96-108); Globulin 2.7 gm/dL (2.2-3.7); Glucose 119 mg/dL (70-105); Phosphorous 4.0 mg/dL (2.5-4.5); Potassium 4.0 mmol/L (3.3-5.1); Sodium 137 mmol/L (133-145); Triglycerides 97 mg/dL (<150); Uric Acid 1.8 mg/dL (2.5-8.0)
[2025-06-04] MEDS: ALBUMIN HUMAN 12.5 GM/50 ML VIAL IV SCH (09:14)
[2025-06-04] MEDS: FUROSEMIDE 40 MG/4 ML VIAL IV SCH (09:49)
[2025-06-04] MEDS: [UNRECOGNIZED DRUG - REMARK] IV SCH (15:07)
[2025-06-04] MEDS: FUROSEMIDE 40 MG/4 ML VIAL IV ONE (16:13)
[2025-06-05 05:58] LABS: Basophils # (Auto) 0.06 K/mcL (0.00-0.30); Basophils % (Auto) 0.6 % (0.0-2.0); Eosinophils # (Auto) 0.34 K/mcL (0.00-0.70); Eosinophils % (Auto) 3.3 % (0.0-7.0); Hematocrit 25.1 % (40.1-51.0); Hemoglobin 8.0 g/dL (13.7-17.5); Lymphocytes # (Auto) 0.49 K/mcL (1.50-4.80); Lymphocytes % (Auto) 4.8 % (15.5-49.0); Mean Corpuscular HGB Conc 31.9 g/dL (31.0-36.0); Monocytes # (Auto) 1.18 K/mcL (0.10-0.90); Monocytes % (Auto) 11.5 % (1.0-12.0); Neutrophils % (Auto) 78.5 % (38.0-78.0); Platelet Count 176 K/mcL (140-440); RBC 2.78 M/mcL (4.63-6.08); WBC 10.3 K/mcL (4.5-11.0)
[2025-06-05 06:52] LABS: ALT/SGPT 32 U/L (<40); AST/SGOT 33 U/L (<40); Albumin 2.1 gm/dL (3.2-5.2); Albumin/Globulin Ratio 0.7 (1.0-2.3); Alkaline Phosphatase 108 U/L (39-117); Anion Gap 9.0 (8.0-16.0); Bilirubin,Direct 1.1 mg/dL (<0.3); Bilirubin,Total 1.6 mg/dL (0.1-1.0); Blood Urea Nitrogen 28 mg/dL (8-23); Calcium 7.8 mg/dL (8.6-10.4); Carbon Dioxide 23 mmol/L (22-30); Chloride 102 mmol/L (96-108); Globulin 3.0 gm/dL (2.2-3.7); Glucose 98 mg/dL (70-105); Phosphorous 3.2 mg/dL (2.5-4.5); Potassium 4.7 mmol/L (3.3-5.1); Sodium 134 mmol/L (133-145); Triglycerides 58 mg/dL (<150); Uric Acid 1.6 mg/dL (2.5-8.0)
[2025-06-05] MEDS: ALBUMIN HUMAN 12.5 GM/50 ML VIAL IV SCH (09:46)
[2025-06-05] MEDS: FUROSEMIDE 100 MG/10 ML VIAL IV SCH (10:20)
[2025-06-05] MEDS: [UNRECOGNIZED DRUG - REMARK] IV SCH (15:12)
[2025-06-05] MEDS: SENNOSIDES 1 TABLET PO PRN (20:32)
[2025-06-06 06:21] LABS: Basophils # (Auto) 0.05 K/mcL (0.00-0.30); Basophils % (Auto) 0.5 % (0.0-2.0); Eosinophils # (Auto) 0.28 K/mcL (0.00-0.70); Eosinophils % (Auto) 2.8 % (0.0-7.0); Hematocrit 25.1 % (40.1-51.0); Hemoglobin 8.0 g/dL (13.7-17.5); Lymphocytes # (Auto) 0.49 K/mcL (1.50-4.80); Lymphocytes % (Auto) 4.8 % (15.5-49.0); Mean Corpuscular HGB Conc 31.9 g/dL (31.0-36.0); Monocytes # (Auto) 1.13 K/mcL (0.10-0.90); Monocytes % (Auto) 11.2 % (1.0-12.0); Neutrophils % (Auto) 79.8 % (38.0-78.0); Platelet Count 194 K/mcL (140-440); RBC 2.80 M/mcL (4.63-6.08); WBC 10.1 K/mcL (4.5-11.0)
[2025-06-06 06:24] LABS: ALT/SGPT 40 U/L (<40); AST/SGOT 41 U/L (<40); Albumin 2.2 gm/dL (3.2-5.2); Albumin/Globulin Ratio 0.7 (1.0-2.3); Alkaline Phosphatase 116 U/L (39-117); Anion Gap 8.0 (8.0-16.0); Bilirubin,Direct 1.2 mg/dL (<0.3); Bilirubin,Total 1.6 mg/dL (0.1-1.0); Blood Urea Nitrogen 27 mg/dL (8-23); Calcium 7.8 mg/dL (8.6-10.4); Carbon Dioxide 22 mmol/L (22-30); Chloride 101 mmol/L (96-108); Globulin 3.3 gm/dL (2.2-3.7); Glucose 110 mg/dL (70-105); Phosphorous 2.8 mg/dL (2.5-4.5); Potassium 4.6 mmol/L (3.3-5.1); Sodium 131 mmol/L (133-145); Triglycerides 51 mg/dL (<150); Uric Acid 1.5 mg/dL (2.5-8.0)
[2025-06-06] MEDS: OCTREOTIDE ACETATE 100 MCG/ML VIAL SQ SCH (14:21)
[2025-06-06] MEDS: [UNRECOGNIZED DRUG - REMARK] IV SCH (15:21)
[2025-06-07 05:52] LABS: Basophils # (Auto) 0.07 K/mcL (0.00-0.30); Basophils % (Auto) 0.8 % (0.0-2.0); Eosinophils # (Auto) 0.24 K/mcL (0.00-0.70); Eosinophils % (Auto) 2.8 % (0.0-7.0); Hematocrit 25.9 % (40.1-51.0); Hemoglobin 8.4 g/dL (13.7-17.5); Lymphocytes # (Auto) 0.43 K/mcL (1.50-4.80); Lymphocytes % (Auto) 5.0 % (15.5-49.0); Mean Corpuscular HGB Conc 32.4 g/dL (31.0-36.0); Monocytes # (Auto) 0.99 K/mcL (0.10-0.90); Monocytes % (Auto) 11.6 % (1.0-12.0); Neutrophils % (Auto) 79.0 % (38.0-78.0); Platelet Count 206 K/mcL (140-440); RBC 2.90 M/mcL (4.63-6.08); WBC 8.5 K/mcL (4.5-11.0)
[2025-06-07 06:14] LABS: ALT/SGPT 50 U/L (<40); AST/SGOT 46 U/L (<40); Albumin 2.3 gm/dL (3.2-5.2); Albumin/Globulin Ratio 0.7 (1.0-2.3); Alkaline Phosphatase 133 U/L (39-117); Anion Gap 9.0 (8.0-16.0); Bilirubin,Direct 0.9 mg/dL (<0.3); Bilirubin,Total 1.2 mg/dL (0.1-1.0); Blood Urea Nitrogen 26 mg/dL (8-23); Calcium 7.8 mg/dL (8.6-10.4); Carbon Dioxide 21 mmol/L (22-30); Chloride 103 mmol/L (96-108); Globulin 3.3 gm/dL (2.2-3.7); Glucose 127 mg/dL (70-105); Phosphorous 2.8 mg/dL (2.5-4.5); Potassium 4.6 mmol/L (3.3-5.1); Sodium 133 mmol/L (133-145); Triglycerides 56 mg/dL (<150); Uric Acid 1.9 mg/dL (2.5-8.0)
[2025-06-08 06:05] LABS: Basophils # (Auto) 0.10 K/mcL (0.00-0.30); Basophils % (Auto) 1.2 % (0.0-2.0); Eosinophils # (Auto) 0.34 K/mcL (0.00-0.70); Eosinophils % (Auto) 4.1 % (0.0-7.0); Hematocrit 24.0 % (40.1-51.0); Hemoglobin 7.7 g/dL (13.7-17.5); Lymphocytes # (Auto) 0.52 K/mcL (1.50-4.80); Lymphocytes % (Auto) 6.3 % (15.5-49.0); Mean Corpuscular HGB Conc 32.1 g/dL (31.0-36.0); Monocytes # (Auto) 0.97 K/mcL (0.10-0.90); Monocytes % (Auto) 11.8 % (1.0-12.0); Neutrophils % (Auto) 75.7 % (38.0-78.0); Platelet Count 247 K/mcL (140-440); RBC 2.68 M/mcL (4.63-6.08); WBC 8.2 K/mcL (4.5-11.0)
[2025-06-08 08:59] LABS: ALT/SGPT 62 U/L (<40); AST/SGOT 58 U/L (<40); Albumin 2.3 gm/dL (3.2-5.2); Albumin/Globulin Ratio 0.7 (1.0-2.3); Alkaline Phosphatase 151 U/L (39-117); Anion Gap 9.0 (8.0-16.0); Bilirubin,Direct 1.0 mg/dL (<0.3); Bilirubin,Total 1.4 mg/dL (0.1-1.0); Blood Urea Nitrogen 25 mg/dL (8-23); Calcium 7.8 mg/dL (8.6-10.4); Carbon Dioxide 21 mmol/L (22-30); Chloride 104 mmol/L (96-108); Globulin 3.5 gm/dL (2.2-3.7); Glucose 95 mg/dL (70-105); Phosphorous 3.0 mg/dL (2.5-4.5); Potassium 4.7 mmol/L (3.3-5.1); Sodium 134 mmol/L (133-145); Triglycerides 52 mg/dL (<150); Uric Acid 2.1 mg/dL (2.5-8.0)
[2025-06-08 10:46] LABS: Hematocrit 23.9 % (40.1-51.0); Hemoglobin 7.6 g/dL (13.7-17.5)
[2025-06-08] MEDS: 0.9 % SODIUM CHLORIDE 250 ML IV SCH (14:45)
[2025-06-08] MEDS: [UNRECOGNIZED DRUG - REMARK] IV SCH (15:19)
[2025-06-09] MEDS: ACETAMINOPHEN 1,000 MG/100 ML BAG IV PRN (03:16)
[2025-06-09 07:31] LABS: Basophils # (Auto) 0.07 K/mcL (0.00-0.30); Basophils % (Auto) 0.7 % (0.0-2.0); Eosinophils # (Auto) 0.18 K/mcL (0.00-0.70); Eosinophils % (Auto) 1.9 % (0.0-7.0); Hematocrit 23.7 % (40.1-51.0); Hemoglobin 7.6 g/dL (13.7-17.5); Lymphocytes # (Auto) 0.59 K/mcL (1.50-4.80); Lymphocytes % (Auto) 6.1 % (15.5-49.0); Mean Corpuscular HGB Conc 32.1 g/dL (31.0-36.0); Monocytes # (Auto) 1.06 K/mcL (0.10-0.90); Monocytes % (Auto) 10.9 % (1.0-12.0); Platelet Count 264 K/mcL (140-440); RBC 2.64 M/mcL (4.63-6.08); WBC 9.7 K/mcL (4.5-11.0)
[2025-06-09 07:38] LABS: ALT/SGPT 87 U/L (<40); AST/SGOT 89 U/L (<40); Albumin 2.3 gm/dL (3.2-5.2); Albumin/Globulin Ratio 0.7 (1.0-2.3); Alkaline Phosphatase 178 U/L (39-117); Anion Gap 9.0 (8.0-16.0); Bilirubin,Direct 0.8 mg/dL (<0.3); Bilirubin,Total 1.1 mg/dL (0.1-1.0); Blood Urea Nitrogen 26 mg/dL (8-23); Calcium 7.4 mg/dL (8.6-10.4); Carbon Dioxide 18 mmol/L (22-30); Chloride 106 mmol/L (96-108); Globulin 3.5 gm/dL (2.2-3.7); Glucose 146 mg/dL (70-105); Phosphorous 3.5 mg/dL (2.5-4.5); Potassium 4.4 mmol/L (3.3-5.1); Sodium 133 mmol/L (133-145); Triglycerides 67 mg/dL (<150); Uric Acid 2.1 mg/dL (2.5-8.0)
[2025-06-09 09:17] LABS: Neutrophils % (Auto) 79.3 % (38.0-78.0)
[2025-06-09] MEDS: FAMOTIDINE/PF 20 MG/2 ML VIAL IV ONE (09:27)
[2025-06-09] MEDS: PIPERACILLIN SODIUM/TAZOBACTAM 3.375 GM in DEXTROSE 5% IN WATER 100 ML IV SCH (18:02)
[2025-06-09] MEDS: 0.9 % SODIUM CHLORIDE 250 ML IV SCH (18:55)
[2025-06-10] MEDS: CEFEPIME 2 GM VIAL IV SCH ×2 (05:13→16:37)
[2025-06-10 05:58] LABS: ALT/SGPT 104 U/L (<40); AST/SGOT 100 U/L (<40); Albumin 2.4 gm/dL (3.2-5.2); Albumin/Globulin Ratio 0.6 (1.0-2.3); Alkaline Phosphatase 195 U/L (39-117); Anion Gap 8.0 (8.0-16.0); Bilirubin,Direct 1.6 mg/dL (<0.3); Bilirubin,Total 2.3 mg/dL (0.1-1.0); Blood Urea Nitrogen 25 mg/dL (8-23); Calcium 7.9 mg/dL (8.6-10.4); Carbon Dioxide 22 mmol/L (22-30); Chloride 104 mmol/L (96-108); Globulin 3.8 gm/dL (2.2-3.7); Glucose 143 mg/dL (70-105); Phosphorous 3.2 mg/dL (2.5-4.5); Potassium 4.9 mmol/L (3.3-5.1); Sodium 134 mmol/L (133-145); Triglycerides 65 mg/dL (<150); Uric Acid 2.0 mg/dL (2.5-8.0)
[2025-06-10 06:02] LABS: Basophils # (Auto) 0.07 K/mcL (0.00-0.30); Basophils % (Auto) 0.9 % (0.0-2.0); Eosinophils # (Auto) 0.20 K/mcL (0.00-0.70); Eosinophils % (Auto) 2.6 % (0.0-7.0); Hematocrit 32.3 % (40.1-51.0); Hemoglobin 10.9 g/dL (13.7-17.5); Lymphocytes # (Auto) 0.44 K/mcL (1.50-4.80); Lymphocytes % (Auto) 5.8 % (15.5-49.0); Mean Corpuscular HGB Conc 33.7 g/dL (31.0-36.0); Monocytes # (Auto) 0.61 K/mcL (0.10-0.90); Monocytes % (Auto) 8.0 % (1.0-12.0); Neutrophils % (Auto) 81.8 % (38.0-78.0); Platelet Count 287 K/mcL (140-440); RBC 3.68 M/mcL (4.63-6.08); WBC 7.6 K/mcL (4.5-11.0)
[2025-06-10] MEDS ORDERED: PROPOFOL 200 MG/20 ML VIAL IV ONE (08:09)
[2025-06-10] MEDS ORDERED: fentaNYL 100 MCG/2 ML VIAL ONE ×2 (08:09→14:01)
[2025-06-10] MEDS ORDERED: LIDOCAINE 2% PF 5 ML VIAL ONE (08:10)
[2025-06-10] MEDS ORDERED: ROCURONIUM 10 MG/ML ML IV ONE ×3 (08:10→12:22)
[2025-06-10] MEDS ORDERED: DEXAMETHASONE 10 MG/ML VIAL ONE (08:10)
[2025-06-10] MEDS ORDERED: ONDANSETRON 4 MG/2 ML VIAL ONE (08:10)
[2025-06-10] MEDS ORDERED: ePHEDrine 50 MG/5 ML SYRINGE (ANEST) IV ONE (10:34)
[2025-06-10] MEDS ORDERED: VASOPRESSIN 20 UNIT/ML VIAL ONE (11:38)
[2025-06-10] MEDS ORDERED: fentaNYL 100 MCG/2 ML VIAL IV PRN (13:46)
[2025-06-10] MEDS ORDERED: ONDANSETRON 4 MG/2 ML VIAL IV PRN (13:46)
[2025-06-10] MEDS ORDERED: LACTATED RINGERS 250 ML IV PRN (13:46)
[2025-06-10] MEDS ORDERED: MEPERIDINE 25 MG/ML VIAL IV PRN (13:46)
[2025-06-10] MEDS ORDERED: IPRATROPIUM/ALBUTEROL 3 ML AMPUL.NEB NEB PRN (13:46)
[2025-06-10] MEDS ORDERED: METHOCARBAMOL 1,000 MG/10 ML VIAL IV PRN (13:46)
[2025-06-10] MEDS ORDERED: NALOXONE HCL 0.4 MG/ML VIAL IV PRN (13:46)
[2025-06-10] MEDS ORDERED: SUGAMMADEX SODIUM 200 MG/2 ML VIAL IV ONE (13:47)
[2025-06-10] MEDS: HYDROmorphone 0.5 MG/0.5 ML SYRINGE IV PRN (14:37)
[2025-06-10] MEDS: 0.9 % SODIUM CHLORIDE 1,000 ML IV SCH (15:29)
[2025-06-10] MEDS: [UNRECOGNIZED DRUG - REMARK] IV SCH (15:46)
[2025-06-10] MEDS: LACTATED RINGERS 1,000 ML IV SCH (15:46)
[2025-06-10] MEDS: ALBUMIN HUMAN 25 GM/100 ML BAG IV SCH (16:38)
[2025-06-10] MEDS: metroNIDAZOLE 500 MG/100 ML BAG IV ONE (16:50)
[2025-06-10] MEDS: CASPOFUNGIN ACETATE 70 MG in 0.9 % SODIUM CHLORIDE 250 ML IV ONE (17:10)
[2025-06-10] MEDS: metroNIDAZOLE 500 MG/100 ML BAG IV SCH (18:47)
[2025-06-10] MEDS: DEXMEDETOMIDINE 400 MCG in PREMIX 1 BAG IV SCH (18:58)
[2025-06-10] MEDS: DEXMEDETOMIDINE 100 ML IV ONE (18:58)
[2025-06-11] MEDS: DEXMEDETOMIDINE 100 ML IV ONE (05:10)
[2025-06-11 06:31] LABS: ALT/SGPT 77 U/L (<40); AST/SGOT 56 U/L (<40); Albumin 2.9 gm/dL (3.2-5.2); Albumin/Globulin Ratio 1.4 (1.0-2.3); Alkaline Phosphatase 85 U/L (39-117); Anion Gap 8.0 (8.0-16.0); Bilirubin,Direct 1.0 mg/dL (<0.3); Bilirubin,Total 1.4 mg/dL (0.1-1.0); Blood Urea Nitrogen 27 mg/dL (8-23); Calcium 7.3 mg/dL (8.6-10.4); Carbon Dioxide 18 mmol/L (22-30); Chloride 108 mmol/L (96-108); Globulin 2.1 gm/dL (2.2-3.7); Glucose 237 mg/dL (70-105); Phosphorous 2.9 mg/dL (2.5-4.5); Potassium 4.8 mmol/L (3.3-5.1); Sodium 134 mmol/L (133-145); Triglycerides 47 mg/dL (<150); Uric Acid 2.5 mg/dL (2.5-8.0)
[2025-06-11 06:39] LABS: Basophils # (Auto) 0.01 K/mcL (0.00-0.30); Basophils % (Auto) 0.1 % (0.0-2.0); Eosinophils # (Auto) 0 K/mcL (0.00-0.70); Eosinophils % (Auto) 0 % (0.0-7.0); Hematocrit 23.2 % (40.1-51.0); Hemoglobin 7.5 g/dL (13.7-17.5); Lymphocytes # (Auto) 0.36 K/mcL (1.50-4.80); Lymphocytes % (Auto) 4.2 % (15.5-49.0); Mean Corpuscular HGB Conc 32.3 g/dL (31.0-36.0); Monocytes # (Auto) 0.60 K/mcL (0.10-0.90); Monocytes % (Auto) 6.9 % (1.0-12.0); Neutrophils % (Auto) 88.3 % (38.0-78.0); Platelet Count 187 K/mcL (140-440); RBC 2.59 M/mcL (4.63-6.08); WBC 8.7 K/mcL (4.5-11.0)
[2025-06-11] MEDS: PYRIDOSTIGMINE BROMIDE 10 MG/2 ML AMPUL IV SCH (10:24)
[2025-06-11] MEDS: CASPOFUNGIN ACETATE 50 MG in 0.9 % SODIUM CHLORIDE 250 ML IV SCH (10:24)
[2025-06-11] MEDS: METOCLOPRAMIDE 10 MG/2 ML VIAL IV SCH (11:48)
[2025-06-11] MEDS: INSULIN LISPRO 1 UNIT/0.01 ML UNIT SQ SCH (12:06)
[2025-06-11] MEDS: 0.9 % SODIUM CHLORIDE 250 ML IV SCH (14:55)
[2025-06-11] MEDS: [UNRECOGNIZED DRUG - REMARK] IV SCH (15:21)
[2025-06-11] MEDS: LACTOPEROXI/GLUC OXID/POT THIO 1 EACH GEL..EA. TOPICAL PRN (17:40)
[2025-06-11] MEDS: CHLORHEXIDINE GLUCONATE 15 ML UDC SWABMOUTH SCH (21:14)
[2025-06-12 06:50] LABS: ALT/SGPT 75 U/L (<40); AST/SGOT 79 U/L (<40); Albumin 2.6 gm/dL (3.2-5.2); Albumin/Globulin Ratio 1.0 (1.0-2.3); Alkaline Phosphatase 233 U/L (39-117); Anion Gap 8.0 (8.0-16.0); Bilirubin,Direct 3.0 mg/dL (<0.3); Bilirubin,Total 4.4 mg/dL (0.1-1.0); Blood Urea Nitrogen 28 mg/dL (8-23); Calcium 7.3 mg/dL (8.6-10.4); Carbon Dioxide 15 mmol/L (22-30); Chloride 115 mmol/L (96-108); Globulin 2.5 gm/dL (2.2-3.7); Glucose 160 mg/dL (70-105); Phosphorous 2.8 mg/dL (2.5-4.5); Potassium 4.5 mmol/L (3.3-5.1); Sodium 138 mmol/L (133-145); Triglycerides 50 mg/dL (<150); Uric Acid 2.1 mg/dL (2.5-8.0)
[2025-06-12 07:32] LABS: Basophils # (Auto) 0.01 K/mcL (0.00-0.30); Basophils % (Auto) 0.1 % (0.0-2.0); Eosinophils # (Auto) 0.01 K/mcL (0.00-0.70); Eosinophils % (Auto) 0.1 % (0.0-7.0); Hematocrit 30.4 % (40.1-51.0); Hemoglobin 9.9 g/dL (13.7-17.5); Lymphocytes # (Auto) 0.62 K/mcL (1.50-4.80); Lymphocytes % (Auto) 5.8 % (15.5-49.0); Mean Corpuscular HGB Conc 32.6 g/dL (31.0-36.0); Monocytes # (Auto) 0.73 K/mcL (0.10-0.90); Monocytes % (Auto) 6.8 % (1.0-12.0); Neutrophils % (Auto) 85.3 % (38.0-78.0); Platelet Count 264 K/mcL (140-440); RBC 3.45 M/mcL (4.63-6.08); WBC 10.8 K/mcL (4.5-11.0)
[2025-06-12] MEDS: CASPOFUNGIN ACETATE 50 MG in 0.9 % SODIUM CHLORIDE 250 ML IV SCH (12:25)
[2025-06-12] MEDS: ALBUMIN HUMAN 25 GM/100 ML BAG IV STA (14:11)
[2025-06-12] MEDS: FUROSEMIDE 40 MG/4 ML VIAL IV SCH (14:52)
[2025-06-12] MEDS: [UNRECOGNIZED DRUG - REMARK] IV SCH (14:58)
[2025-06-12] MEDS: ALBUMIN HUMAN 25 GM/100 ML BAG IV SCH (19:48)
[2025-06-12] MEDS: DIAZEPAM 10 MG/2 ML SYRINGE IV PRN (23:21)
[2025-06-13 06:15] LABS: Basophils # (Auto) 0.01 K/mcL (0.00-0.30); Basophils % (Auto) 0.1 % (0.0-2.0); Eosinophils # (Auto) 0.05 K/mcL (0.00-0.70); Eosinophils % (Auto) 0.5 % (0.0-7.0); Hematocrit 29.3 % (40.1-51.0); Hemoglobin 9.7 g/dL (13.7-17.5); Lymphocytes # (Auto) 0.56 K/mcL (1.50-4.80); Lymphocytes % (Auto) 5.7 % (15.5-49.0); Mean Corpuscular HGB Conc 33.1 g/dL (31.0-36.0); Monocytes # (Auto) 0.60 K/mcL (0.10-0.90); Monocytes % (Auto) 6.1 % (1.0-12.0); Neutrophils % (Auto) 85.2 % (38.0-78.0); Platelet Count 281 K/mcL (140-440); RBC 3.31 M/mcL (4.63-6.08); WBC 9.8 K/mcL (4.5-11.0)
[2025-06-13 06:36] LABS: ALT/SGPT 142 U/L (<40); AST/SGOT 204 U/L (<40); Albumin 3.6 gm/dL (3.2-5.2); Albumin/Globulin Ratio 1.5 (1.0-2.3); Alkaline Phosphatase 359 U/L (39-117); Anion Gap 13.0 (8.0-16.0); Bilirubin,Direct 4.0 mg/dL (<0.3); Bilirubin,Total 6.0 mg/dL (0.1-1.0); Blood Urea Nitrogen 30 mg/dL (8-23); Calcium 8.2 mg/dL (8.6-10.4); Carbon Dioxide 18 mmol/L (22-30); Chloride 108 mmol/L (96-108); Globulin 2.4 gm/dL (2.2-3.7); Glucose 142 mg/dL (70-105); Phosphorous 3.3 mg/dL (2.5-4.5); Potassium 3.8 mmol/L (3.3-5.1); Sodium 139 mmol/L (133-145); Triglycerides 46 mg/dL (<150); Uric Acid 2.5 mg/dL (2.5-8.0)
[2025-06-13] MEDS: BENZOCAINE/MENTHOL 1 LOZENGE PO PRN (09:27)
[2025-06-13] MEDS ORDERED: [UNRECOGNIZED DRUG - REMARK] IV SCH (15:00)
[2025-06-13] MEDS: [UNRECOGNIZED DRUG - REMARK] IV SCH (15:00)
[2025-06-13] MEDS ORDERED: OCTREOTIDE ACETATE 50 MCG/ML AMPUL SQ SCH (21:00)
[2025-06-13] MEDS: OCTREOTIDE ACETATE 100 MCG/ML VIAL SQ SCH (21:30)
[2025-06-14 06:04] LABS: Basophils # (Auto) 0.01 K/mcL (0.00-0.30); Basophils % (Auto) 0.1 % (0.0-2.0); Eosinophils # (Auto) 0.17 K/mcL (0.00-0.70); Eosinophils % (Auto) 2.0 % (0.0-7.0); Hematocrit 29.0 % (40.1-51.0); Hemoglobin 9.6 g/dL (13.7-17.5); Lymphocytes # (Auto) 0.50 K/mcL (1.50-4.80); Lymphocytes % (Auto) 5.8 % (15.5-49.0); Mean Corpuscular HGB Conc 33.1 g/dL (31.0-36.0); Monocytes # (Auto) 0.57 K/mcL (0.10-0.90); Monocytes % (Auto) 6.6 % (1.0-12.0); Neutrophils % (Auto) 82.0 % (38.0-78.0); Platelet Count 295 K/mcL (140-440); RBC 3.30 M/mcL (4.63-6.08); WBC 8.7 K/mcL (4.5-11.0)
[2025-06-14 06:31] LABS: ALT/SGPT 192 U/L (<40); AST/SGOT 246 U/L (<40); Albumin 4.2 gm/dL (3.2-5.2); Albumin/Globulin Ratio 1.9 (1.0-2.3); Alkaline Phosphatase 361 U/L (39-117); Anion Gap 14.0 (8.0-16.0); Bilirubin,Direct 4.9 mg/dL (<0.3); Bilirubin,Total 7.9 mg/dL (0.1-1.0); Blood Urea Nitrogen 33 mg/dL (8-23); Calcium 8.7 mg/dL (8.6-10.4); Carbon Dioxide 20 mmol/L (22-30); Chloride 107 mmol/L (96-108); Globulin 2.2 gm/dL (2.2-3.7); Glucose 149 mg/dL (70-105); Phosphorous 3.5 mg/dL (2.5-4.5); Potassium 3.5 mmol/L (3.3-5.1); Sodium 141 mmol/L (133-145); Triglycerides 47 mg/dL (<150); Uric Acid 2.6 mg/dL (2.5-8.0)
[2025-06-14] MEDS: FLUCONAZOLE 400 MG/200 ML BAG IV SCH (12:49)
[2025-06-14] MEDS: [UNRECOGNIZED DRUG - REMARK] IV SCH (15:14)
[2025-06-15 07:24] LABS: ALT/SGPT 229 U/L (<40); AST/SGOT 226 U/L (<40); Albumin 3.6 gm/dL (3.2-5.2); Albumin/Globulin Ratio 1.4 (1.0-2.3); Alkaline Phosphatase 482 U/L (39-117); Anion Gap 14.0 (8.0-16.0); Bilirubin,Direct 5.8 mg/dL (<0.3); Bilirubin,Total 9.0 mg/dL (0.1-1.0); Blood Urea Nitrogen 35 mg/dL (8-23); Calcium 8.5 mg/dL (8.6-10.4); Carbon Dioxide 18 mmol/L (22-30); Chloride 110 mmol/L (96-108); Globulin 2.6 gm/dL (2.2-3.7); Glucose 125 mg/dL (70-105); Phosphorous 2.8 mg/dL (2.5-4.5); Potassium 4.0 mmol/L (3.3-5.1); Sodium 142 mmol/L (133-145); Triglycerides 55 mg/dL (<150); Uric Acid 1.9 mg/dL (2.5-8.0)
[2025-06-15 08:31] LABS: INR 1.7 (0.9-1.1); Prothrombin Time 21.5 sec (11.9-14.5)
[2025-06-15] MEDS: FLUCONAZOLE 400 MG/200 ML BAG IV SCH (09:29)
[2025-06-15] MEDS: FUROSEMIDE 20 MG/2 ML VIAL IV SCH (09:29)
[2025-06-15 10:16] LABS: Basophils # (Auto) 0.02 K/mcL (0.00-0.30); Basophils % (Auto) 0.1 % (0.0-2.0); Eosinophils # (Auto) 0.13 K/mcL (0.00-0.70); Eosinophils % (Auto) 1.0 % (0.0-7.0); Hematocrit 33.7 % (40.1-51.0); Hemoglobin 11.4 g/dL (13.7-17.5); Lymphocytes # (Auto) 0.41 K/mcL (1.50-4.80); Lymphocytes % (Auto) 3.1 % (15.5-49.0); Mean Corpuscular HGB Conc 33.8 g/dL (31.0-36.0); Monocytes # (Auto) 0.65 K/mcL (0.10-0.90); Monocytes % (Auto) 4.8 % (1.0-12.0); Neutrophils % (Auto) 87.7 % (38.0-78.0); Platelet Count 357 K/mcL (140-440); RBC 3.95 M/mcL (4.63-6.08); WBC 13.4 K/mcL (4.5-11.0)
[2025-06-15] MEDS: 0.9 % SODIUM CHLORIDE 250 ML IV SCH (12:34)
[2025-06-15] MEDS: [UNRECOGNIZED DRUG - REMARK] IV SCH (15:03)
== END 2025-06-15 17:44 | disposition short-term general hospital (02) | DRG 326 ==
LOC: ED 02:45 → ICU 06:56 → SUATTDRO 06:56 → MEDSUR 23:44 → ICU 05-26 20:18
PROVIDERS: ADMIT Family Medicine Adult Medicine; ATTEND Family Medicine Adult Medicine